=== PATIENT | female | born 1980 | race Caucasian/White ===

== ENCOUNTER → 2017-09-25 | Outpatient (CLI) | payer BC, OTHER ==
[~2017-09-25] MED LIST: BIRTH CONTROL PO; DPH25C PO; NAPR250T34 PO; PRD20T PO
--- NOTE | 2017-09-25 18:21 | Diagnostic Imaging Report ---
PATIENT HISTORY: Pelvic pain. Left side. TECHNIQUE: Transpelvic and transvaginal ultrasound performed of the pelvis. COMPARISON: None FINDINGS: The uterus is anteverted and within normal limits in size. There is a small hypoechoic region in the anterior uterus which measures 9 x 7 x 8 mm, likely represents a small fibroid. The endometrium is thickened and echogenic, measuring 12 mm in thickness. Small subcentimeter nabothian cysts are seen in the cervix. The right ovary measures 3.0 x 2.2 x 2.8 cm in size, and demonstrates an irregular hypoechoic focus which measures 2.5 x 2.0 x 2.3 cm, may represent an involuting ovarian cyst. There is normal vascularity of the right ovary. The left ovary was not visualized due to bowel gas. No significant free fluid is seen. IMPRESSION: 1. Small subcentimeter fibroid in the anterior uterus. Multiple small subcentimeter nabothian cysts. 2. The endometrium is mildly thick and echogenic, measuring 12 mm, however this would be within normal limits in a premenopausal woman in the secretory phase. Please correlate with history. 3. 2.5 cm simple appearing involuting cyst on the right ovary. The left ovary was not seen due to bowel gas. Dictated by: Dictated on workstation # [id number]
== END ==
LOC: RAD 16:56
PROVIDERS: ATTEND Nurse Practitioner Family
DX: D25.9 Leiomyoma of uterus, unspecified (principal); N88.8 Other specified noninflammatory disorders of cervix uteri; N83.201 Unspecified ovarian cyst, right side; R93.8 Abnormal findings on diagnostic imaging of other specified body structures
CPT/HCPCS: 76830; 76856

== ENCOUNTER → 2017-11-06 | Outpatient (CLI) | payer OTHER ==
--- NOTE | 2017-11-06 15:30 | Diagnostic Imaging Report ---
PROCEDURE: CT abdomen and pelvis without contrast. TECHNIQUE: Multiple contiguous axial images were obtained through the abdomen and pelvis without the use of intravenous contrast. INDICATION: Left groin pain. COMPARISON: No prior studies are available for comparison. FINDINGS: Imaging through the lung bases does show mass-like consolidation in the medial aspect of the right lower lobe measuring 6.7 x 3.9 cm. The left lung is clear. No discrete liver mass is identified. The gallbladder is unremarkable. Pancreas and spleen are unremarkable. No adrenal mass is identified. No renal calculi or hydronephrosis is detected. The aorta is nonaneurysmal. The small and large bowel loops are normal in caliber. There is no ascites. Uterus and ovaries are unremarkable. The bladder is unremarkable. No hernia is identified. No abdominal or pelvic lymphadenopathy is seen. The bony structures are unremarkable. IMPRESSION: 1. Mass/consolidation in the medial right lower lobe. This is likely on an infectious/inflammatory basis. A short-interval CT chest followup after course of therapy is recommended to confirm improvement/clearing. 2. No acute feature in the abdomen or pelvis is identified. Dictated by: Dictated on workstation # [id number]
== END ==
LOC: RAD 14:28
PROVIDERS: ATTEND Obstetrics & Gynecology
DX: R93.5 Abnormal findings on diagnostic imaging of other abdominal regions, including retroperitoneum (principal); R10.32 Left lower quadrant pain
CPT/HCPCS: 74176